=== PATIENT | female | born 1980 | race American Indian/Alaskan Native ===

== ENCOUNTER 2019-06-11 10:41 | Emergency (ER) | payer OTHER ==
[2019-06-11] MEDS ORDERED: NEOMY 3.5 MG/BACIT 400 UNITS/POLY B 5000 UNITS/GM OINT PACKET TP ONE ×2 (10:57→11:06)
[2019-06-11] MEDS ORDERED: amLODIPine 5 MG TAB PO ONE (11:00)
[2019-06-11] MEDS ORDERED: TETANUS,DIPH,PERTUSS(ACELL) VACCINE 0.5 ML SYRINGE IM ONE (11:00)
--- NOTE | 2019-06-11 11:05 | Emergency Department Report ---
ED General Adult HPI - General Chief complaint: Urogenital-Female Stated complaint: LEFT BREAST INJURY Time Seen by Provider: 06/11/19 11:00 Source: patient Mode of arrival: Ambulatory Limitations: No Limitations - History of Present Illness Initial comments: This is a 38-year-old female that sustained an injury to reveal an area on the left. She states it was an accidental gain of a nipple ring on [place] of her dog. When she got up the ring ripped out. She has had some minor bleeding. She reports no other injury. states that she does have a history of hypertension previously treated with Lasix only. She has not been to the doctor in some time. She does not complain of any other symptoms. -: Sudden Location: left (breast) Associated Symptoms: denies other symptoms - Related Data Previous Rx's Medication Instructions Recorded Last Taken Type amLODIPine 5 mg PO ONCE #30 tablet 06/11/19 Unknown Rx Allergies Allergy/AdvReac Type Severity Reaction Status Date / Time No Known Allergies Allergy Unverified 06/11/19 10:42 ED Review of Systems ROS: Stated complaint: LEFT BREAST INJURY Other details as noted in HPI Comment: All other systems reviewed and negative ED Past Medical Hx - Past Medical History Previous Medical History?: No - Surgical History Past Surgical History?: Yes Hx Breast Surgery: Yes (Reduction) - Social History Smoking Status: Never Smoker Substance Use Type: Alcohol - Medications Home Medications: Home Medications Medication Instructions Recorded Confirmed Last Taken Type amLODIPine 5 mg PO ONCE #30 tablet 06/11/19 Unknown Rx ED Physical Exam - General Limitations: No Limitations General appearance: alert, in no apparent distress - Head Head exam: Present: atraumatic, normocephalic - Eye Eye exam: Present: normal appearance. Absent: scleral icterus - ENT ENT exam: Present: mucous membranes moist - Neck Neck exam: Present: normal inspection - Respiratory Respiratory exam: Present: normal lung sounds bilaterally, other (left breast e xam shows what appears to be a superficial laceration of the mid areole area. It does not appear to involve the duct itself. There is no active bleeding.). Absent: respiratory distress - Cardiovascular Cardiovascular Exam: Present: regular rate, normal rhythm. Absent: systolic murmur, diastolic murmur, rubs, gallop - GI/Abdominal GI/Abdominal exam: Present: soft, normal bowel sounds. Absent: distended, tenderness, guarding, rebound - Extremities Exam Extremities exam: Present: normal inspection - Back Exam Back exam: Present: normal inspection - Neurological Exam Neurological exam: Present: alert, oriented X3, CN II-XII intact. Absent: motor sensory deficit - Psychiatric Psychiatric exam: Present: normal affect, normal mood - Skin Skin exam: Present: warm, dry, intact, normal color. Absent: rash ED Course Vital Signs 06/11/19 10:44 Temperature 98.4 F Pulse Rate 103 H Respiratory 18 Rate Blood Pressure 170/111 O2 Sat by Pulse 97 Oximetry - Reevaluation(s) Reevaluation #1: Amlodipine given. Tetanus given. Wound care instructions. Not a candidate for suture repair. I wouldn't use adhesive in that area also. 06/11/19 11:03 Critical care attestation.: If time is entered above; I have spent that time in minutes in the direct care of this critically ill patient, excluding procedure time. ED Disposition Clinical Impression: Accidental laceration, Essential hypertension Disposition: - TO HOME OR SELFCARE Is pt being admited?: No Does the pt Need Aspirin: No Condition: Stable Instructions: Acute Wound Care (ED), Hypertension (ED) Additional Instructions: Any udyc-upp-mowbsck ointment can be used. Cleanse daily with peroxide. Follow-up with primary care physician. Further evaluation is necessary for your hypertension. (Rx amlodipine) Prescriptions: amLODIPine 5 mg PO ONCE #30 tablet Referrals: [facility] [Provider Group] - 3-5 Days Time of Disposition: 11:06
[2019-06-11 11:58] VITALS: BP 151/94
== END 2019-06-11 12:13 | disposition home or self-care (01) ==
LOC: ED 10:41
DX: S21.012A Laceration without foreign body of left breast, initial encounter (principal); I10 Essential (primary) hypertension; F10.10 Alcohol abuse, uncomplicated; Z98.890 Other specified postprocedural states; Z79.899 Other long term (current) drug therapy; X58.XXXA Exposure to other specified factors, initial encounter; Y93.89 Activity, other specified; Y92.89 Other specified places as the place of occurrence of the external cause; Y99.8 Other external cause status
CPT/HCPCS: 90471; 90715; A6250